=== PATIENT | female | born 2000 | race American Indian/Alaskan Native ===

== ENCOUNTER 2021-04-19 14:53 | Outpatient (CLI) | payer MEDICAID ==
[2021-04-19 17:20] VITALS: BP 102/61
== END 2021-04-19 17:50 | disposition home or self-care (01) ==
LOC: TRG 14:53 → APU 14:56 → TRG 17:50
PROVIDERS: ATTEND Obstetrics & Gynecology
DX: Z34.93 Encounter for supervision of normal pregnancy, unspecified, third trimester (principal); Z3A.38 38 weeks gestation of pregnancy
CPT/HCPCS: 59025

== ENCOUNTER 2021-04-22 13:23 | Outpatient (CLI) | payer MEDICAID ==
[2021-04-22 15:10] LABS: Bilirubin,Urine NEG (Negative); Blood,Urine NEG (Negative); Color,Urine Yellow (Yellow); Mucus,Urine FEW /HPF; Protein,Urine <15 mg/dL mg/dL (Negative); Urobilinogen,Urine < 2.0 mg/dL (<2.0)
[2021-04-22 16:24] VITALS: BP 109/67
[2021-04-22] MEDS ORDERED: LACTATED RINGERS 1,000 ML ONE (16:29)
[2021-04-22] MEDS ORDERED: hydrOXYzine HCL 100 MG/2 ML INJ IM ONE (18:30)
[2021-04-22] MEDS ORDERED: MORPHINE 4 MG/1 ML INJ IM ONE (18:30)
--- NOTE | 2021-04-22 18:53 | Ultrasound Report ---
ULTRASOUND OBSTETRIC LIMITED ULTRASOUND BIOPHYSICAL PROFILE INDICATION / CLINICAL INFORMATION: well being. Clinical Gestational Age (GA): 3 9.1 weeks.days COMPARISON: None available. FINDINGS: BREATHING MOVEMENT = 2 GROSS BODY MOVEMENT = 2 TONE = 2 QUALITATIVE AMNIOTIC FLUID VOLUME = 2 TOTAL BIOPHYSICAL SCORE = 8/8 HEART RATE (beats per minute): 138 AMNIOTIC FLUID INDEX (cm) = 15.8 (normal = 7-24 cm) PRESENTATION: Cephalic. ADDITIONAL FINDINGS: None. IMPRESSION: 1. Biophysical Score = 8/8 Signer Name: Cosme Whitfield MD Signed: 04/22/2021 6:49 PM Workstation Name: [id number]
--- NOTE | 2021-04-22 19:01 | Ultrasound Report ---
ULTRASOUND OBSTETRIC LIMITED ULTRASOUND BIOPHYSICAL PROFILE INDICATION / CLINICAL INFORMATION: analilia. Clinical Gestational Age (GA): 3 9.1 weeks.days COMPARISON: None available. FINDINGS: BREATHING MOVEMENT = 2 GROSS BODY MOVEMENT = 2 TONE = 2 QUALITATIVE AMNIOTIC FLUID VOLUME = 2 TOTAL BIOPHYSICAL SCORE = 8/8 HEART RATE (beats per minute): 138 AMNIOTIC FLUID INDEX (cm) = 15.8 (normal = 7-24 cm) PRESENTATION: Cephalic. ADDITIONAL FINDINGS: None. IMPRESSION: 1. Biophysical Score = 8/8 Signer Name: Cosme Whitfield MD Signed: 04/22/2021 6:57 PM Workstation Name: [id number]
== END 2021-04-22 18:20 | disposition home or self-care (01) ==
LOC: TRG 13:23 → APU 13:24 → TRG 18:20
PROVIDERS: ATTEND Obstetrics & Gynecology
DX: Z34.93 Encounter for supervision of normal pregnancy, unspecified, third trimester (principal); Z3A.39 39 weeks gestation of pregnancy
CPT/HCPCS: 76815; 76819; 81001; J2270; J3410; J7120